=== PATIENT | female | born 1930 | race Asian ===

== ENCOUNTER 2019-01-29 10:50 | Inpatient (IN) | payer MEDICARE, BC ==
[~2019-01-29] VITALS: Ht 165.1 cm; Wt 72.7 kg
[~2019-01-29 10:50] MED LIST: CHOLESTEROL PO; HIGH BP PO; THYROID PO
[2019-01-29] MEDS ORDERED: morphine 4 MG/ML VIAL IV ONE (11:00)
[2019-01-29] MEDS ORDERED: SOD CHLORIDE 0.9% 1,000 ML IV STA (11:00)
[2019-01-29] MEDS ORDERED: ONDANSETRON 4 MG INJ IV ONE (11:00)
[2019-01-29] MEDS ORDERED: MECL-77 PO (11:51)
[2019-01-29] MEDS ORDERED: PANT40TA3 PO (11:52)
[2019-01-29] MEDS ORDERED: AMLO5TAB4 PO (11:52)
[2019-01-29] MEDS ORDERED: LEVO25TA50 PO (11:52)
[2019-01-29] MEDS ORDERED: ATOR10TA65 PO (11:53)
[2019-01-29] MEDS ORDERED: CELE200C PO (11:55)
[2019-01-29] MEDS ORDERED: FENO134C PO (11:57)
[2019-01-29] MEDS ORDERED: LIPA1CAP6 PO (11:57)
[2019-01-29] MEDS ORDERED: DULO30CA47 PO (11:57)
[2019-01-29] MEDS ORDERED: PREG50CA PO (11:58)
[2019-01-29] MEDS ORDERED: METO-448 PO (12:00)
[2019-01-29] MEDS ORDERED: ALEN70TA5 PO (12:00)
[2019-01-29] MEDS ORDERED: LEVO5TAB PO (12:01)
--- NOTE | 2019-01-29 13:56 | ERD ---
ER Documentation Chief Complaint Chief Complaint pt fell out of bed-back pain HPI This is an 88-year-old female who comes from a longterm facility. The patient fell out of bed just prior to arrival. She is describing lumbar back pain. Moderate, throbbing. No reported head trauma or loss of consciousness, no anticoagulants ported. Remainder of HPI is limited. The patient denies any chest pain or shortness of breath. 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 Medications Home Meds Reported Medications Levocetirizine Dihydrochloride (LEVOCETIRIZINE DIHYDROCHLORIDE) 5 Mg Tablet, 5 MG PO DAILY, #30 TAB 01/29/19 Alendronate Sodium* (Fosamax*) 70 Mg Tablet, 70 MG PO Q7D, #4 TAB 01/29/19 Metoprolol Tartrate* (Lopressor*) 25 Mg Tab, 25 MG PO DAILY, #60 TAB 01/29/19 Pregabalin* (Lyrica*) 50 Mg Capsule, 50 MG PO DAILY, CAP 01/29/19 Duloxetine Hcl* (Duloxetine Hcl*) 30 Mg Capsule.dr, 30 MG PO DAILY, #30 CAP 01/29/19 Yqcuge-Rholcqio-Ymgnbyl* (Rosita DR* 24,000) 24,000 L-76,000-120,000 Unit Capsule.dr, 1 CAP PO WITH MEALS, CAP 01/29/19 Fenofibrate, Micronized (Fenofibrate) 134 Mg Capsule, 134 MG PO DAILY, CAP 01/29/19 Celecoxib* (Celebrex*) 200 Mg Capsule, 200 MG PO DAILY, CAP 01/29/19 Atorvastatin Calcium (Atorvastatin Calcium) 10 Mg Tablet, 10 MG PO QHS, #30 TAB 01/29/19 Pantoprazole* (Protonix*) 40 Mg Tablet.dr, 40 MG PO DAILY, TAB 01/29/19 Amlodipine Besylate* (Norvasc*) 5 Mg Tablet, 5 MG PO DAILY, TAB 01/29/19 Levothyroxine Sodium* (Levoxyl*) 25 Mcg Tablet, 25 MCG PO BEFORE BREAKFAST, #30 TAB 01/29/19 Meclizine Hcl* (Meclizine Hcl*) 25 Mg Tablet, 25 MG PO BID PRN for DIZZINESS, TAB 01/29/19 Discontinued Reported Medications [Thyroid] No Conflict Check, PO DAILY 04/05/11 [High Bp] No Conflict Check, PO DAILY 04/05/11 [Cholesterol ] No Conflict Check, PO DAILY 04/05/11 Allergies Allergies: Coded Allergies: No Known Drug Allergies (Verified Allergy, Unknown, 01/29/19) PMhx/Soc History of Surgery: Yes (L ANKLE SX 2001) Anesthesia Reaction: No Hx Neurological Disorder: No Hx Respiratory Disorders: No Hx Cardiac Disorders: Yes (HTN, cholesterol) Hx Psychiatric Problems: No Hx Miscellaneous Medical Probl: No Hx Alcohol Use: No Hx Substance Use: No Hx Tobacco Use: No Smoking Status: Never smoker FmHx Family History: No diabetes Physical Exam Vitals Vital Signs Date Temp Pulse Resp B/P (MAP) Pulse Ox O2 O2 Flow FiO2 Time Delivery Rate 01/29/19 97.8 76 18 170/90 98 11:09 (116) Physical Exam Airway is intact Bilateral breath sounds Strong distal pulses No obvious deficits General: Well developed, well nourished, no acute distress Head: Normocephalic, atraumatic Eyes: Pupils equally reactive, EOM intact ENT: Moist mucous membranes Neck: Supple, no lymphadenopathy, No midline tenderness, deformities, step-offs to the cervical spine, full active and passive range of motion without midline pain. Respiratory: Lungs clear bilaterally, no distress, no chest wall tenderness, no crepitus Cardiovascular: RRR, no murmurs, rubs, or gallops Abdominal: Soft, non-tender, non-distended, no peritoneal signs, pelvis is stable : Deferred MSK: No edema, no unilateral swelling, 5/5 strength, no midline tenderness deformities or step-offs to the thoracolumbar spine Neurologic: Alert and oriented, moving all extremities, normal speech, no focal weakness, no cerebellar signs Skin: No ecchymoses or bruising to the chest or abdomen Psych: Normal mood Result Diagram: 01/29/19 1131 01/29/19 1131 Results 24 hrs Laboratory Tests Test 01/29/19 11:31 White Blood Count 8.1 10^3/ul Red Blood Count 4.48 10^6/ul Hemoglobin 13.8 g/dl Hematocrit 42.4 % Mean Corpuscular Volume 94.6 fl Mean Corpuscular Hemoglobin 30.8 pg Mean Corpuscular Hemoglobin Concent 32.5 g/dl Red Cell Distribution Width 12.9 % Platelet Count 292 10^3/UL Mean Platelet Volume 9.3 fl Immature Granulocytes % 0.200 % Neutrophils % 67.5 % Lymphocytes % 24.9 % Monocytes % 6.9 % Eosinophils % 0.4 % Basophils % 0.1 % Nucleated Red Blood Cells % 0.0 /100WBC Immature Granulocytes # 0.020 10^3/ul Neutrophils # 5.5 10^3/ul Lymphocytes # 2.0 10^3/ul Monocytes # 0.6 10^3/ul Eosinophils # 0.0 10^3/ul Basophils # 0.0 10^3/ul Nucleated Red Blood Cells # 0.0 10^3/ul Prothrombin Time 11.8 Sec Prothrombin Time Ratio 0.9 INR International Normalized Ratio 0.86 Activated Partial Thromboplast Time 27.7 Sec Sodium Level 141 mmol/L Potassium Level 4.0 mmol/L Chloride Level 104 mmol/L Carbon Dioxide Level 26 mmol/L Anion Gap 11 Blood Urea Nitrogen 15 mg/dl Creatinine 0.64 mg/dl Est Glomerular Filtrat Rate mL/min mL/min Glucose Level 163 mg/dl Calcium Level 9.7 mg/dl Creatine Kinase 40 IU/L Current Medications Medications Dose Sig/Piedad Start Time Status Last (Trade) Ordered Route PRN Stop Time Admin Dose Reason Admin Sodium 1,000 ml @ Q1H STAT 01/29/19 DC 01/29/19 Chloride 1,000 mls/hr IV 11:00 11:38 01/29/19 11:59 Morphine 4 mg ONCE ONCE 01/29/19 DC 01/29/19 Sulfate IV 11:00 11:37 (morphine) 01/29/19 11:02 Ondansetron 4 mg ONCE ONCE 01/29/19 DC 01/29/19 HCl (Zofran IV 11:00 11:37 Inj) 01/29/19 11:02 Ondansetron 4 mg BRIDGE ORDER 01/29/19 HCl (Zofran PRN IV 14:00 Inj) NAUSEA/VOMITI 01/30/19 13:59 NG 650 mg ER BRIDGE 01/29/19 Acetaminophen PRN PO 14:00 (Tylenol .MILD PAIN 01/30/19 13:59 Tab) 1-3 OR TEMP Procedures/MDM EKG, MONITORS, & DIAGNOSTIC IMAGING: ct brain IMPRESSION: 1. No acute intracranial hemorrhage, transcortical infarction or mass effect. 2. Moderate intracranial atherosclerosis and chronic small vessel ischemic changes. 3. Small lacunar infarcts in the left frontal periventricular white matter as well as left thalamus. 4. Moderate generalized cerebral and mild cerebellar volume loss. RPTAT: CT L spine IMPRESSION: 1. Indeterminate age L3 vertebral body fracture with 70% vertebral body height loss. Recommend MR to further evaluate for acuity and potential vertebral augmentation candidacy. 2. Multilevel broad-based disc osteophyte complexes at the T11-12 through L5-S1 levels with severe central canal stenosis at L3-4 and L4-5, moderate to severe at L2-3, moderate at L5-S1 and mild at L1-2. 3. Multilevel neural foraminal stenosis at the L1-2 through L5-S1 levels and correlate with respective radiculopathy. 4. Multilevel facet ligamentum flavum osteoarthropathy 5. Severe generalized osteopenia 6. Atherosclerotic vascular disease CT T SPINE IMPRESSION: 1. No acute fractures or traumatic subluxations. 2. Diffuse generalized osteopenia and diffuse thoracic enthesopathy. 3. Intradiskal calcifications at the T8-9 through T10-11 levels with vacuum phenomenon present at T6-7 T10-11 and T11-12. 4. Mild atherosclerotic vascular disease RPTAT: [facility] INTERPRETATION: I reviewed the laboratory testing and it shows [no evidence of acute process] MEDICAL DECISION MAKING: Patient has mechanical fall. No evidence of syncope. The patient's age warrant CT imaging of the head, lumbar and thoracic spine. ER COURSE: * CT showing evidence of a 70% compression fracture of L3. This is likely a acute fracture no subacute process cannot be ruled out. Given 70% reduction, persistent pain inpatient hospital station appropriate. * Orthopedic surgeon surface to air weapons officer Dr. Zaragoza states that he can consult on this case * pain is well controlled with pain medication in the emergency room setting CONSULTATION: Orthopedic surgeon, Dr. Zaragoza DISPOSITION PLAN: Accepting care team and consultations: I discussed the current laboratory data, diagnostic imaging and emergency care provided. Admitting team: Dr. Gusman Admitting team indication: Insurance directed Departure Diagnosis: Primary Impression: Compression fracture of L3 vertebra Encounter type: initial encounter Qualified Codes: S32.030A - Wedge compression fracture of third lumbar vertebra, initial encounter for closed fracture Condition: Stable BAUTISTA BUCHANAN MD Jan 29, 2019 13:56
[2019-01-29] MEDS ORDERED: ONDANSETRON 4 MG INJ IV PRN ×2 (14:00)
[2019-01-29] MEDS ORDERED: MECLIZINE 25 MG TAB PO PRN (14:00)
[2019-01-29] MEDS ORDERED: NACL 0.9% 3 ML SYG IV SCH (14:00)
[2019-01-29] MEDS ORDERED: ACETAMINOPHEN 325 MG TAB PO PRN ×2 (14:00)
[2019-01-29] MEDS ORDERED: morphine 2 MG INJ IV PRN (14:00)
--- NOTE | 2019-01-29 14:38 | HP ---
Date/Time of Note Date/Time of Note DATE: 01/29/19 TIME: 14:38 Assessment/Plan VTE Prophylaxis Pharmacological prophylaxis: other Lines/Catheters IV Catheter Type (from Nrsg): Saline Lock Assessment/Plan Hospital Course Patient is a [place] female with a past medical history significant for compression fracture approximately 1 year ago, hypertension, dyslipidemia, mood disorder, neuropathy, digestive issues, GERD, hypothyroidism who presents to [facility] after mechanical fall. According to family and patient, patient had to urinate early in the morning around 5 AM, as she was getting out of bed as she normally does she felt a pinch of pain in her lower back while she was in the process of getting out of bed which caused her to collapse and fall. Patient states that the pinch of pain in her back is the exact same area that she has been dealing with for over 1 year. One year ago patient had a fall in the bathtub which caused her to have a compression fracture. Currently patient who is with no significant signs of dementia states that the pain is localized to the exact same area that she chronically deals with but it is augmented. Patient denies any hip or leg pain that is new at this time. Patient denies chest pain, shortness of breath, headache, nausea, vomiting, abdominal pain, leg pain, bowel or bladder dysfunction. Objective Physical exam General: Patient is laying in bed and answers questions appropriately Mentation: Patient is alert and oriented 4, Head: Normocephalic atraumatic Eyes: EOMI, pupils reactive to light Neck: Supple, nontender, midline Respiratory: Clear to auscultation bilaterally Cardiovascular: regular rate, no obvious murmurs Gastrointestinal: non-tender to palpation, bowel sounds heard. Neurological: Moves all extremities spontaneously Musculoskeletal: Mild to moderately tender in the lower back region Assessment and plan Acute on chronic lumbar back pain secondary to mechanical fall -Patient does have a history of compression fracture, current CT shows age indeterminant compression fracture -Dr. Zaragoza, orthopedic surgeon has been consulted -Patient's and patient's family decided 1 year ago not to proceed with compression fracture surgery however things may be different at this time, will defer to Dr. Zaragoza and family's decision -Hold off on physical therapy occupational therapy until orthopedic surgery has seen patient -Hold off on imaging as will defer to orthopedic surgeon for optimal correct imaging for further imaging studies if needed. Hypertension -Continue home meds Dyslipidemia -Continue home meds Foot pain issues -Continue Lyrica Chronic compression fracture -Hold Celebrex for now, other pain meds available -Monitor GERD -Continue PPI Hypothyroidism -Continue home medications Disposition -Awaiting orthopedic surgery evaluation, Result Diagram: 01/29/19 1131 01/29/19 1131 Results 24hrs Laboratory Tests Test 01/29/19 11:31 White Blood Count 8.1 Red Blood Count 4.48 Hemoglobin 13.8 Hematocrit 42.4 Mean Corpuscular Volume 94.6 Mean Corpuscular Hemoglobin 30.8 Mean Corpuscular Hemoglobin Concent 32.5 Red Cell Distribution Width 12.9 Platelet Count 292 Mean Platelet Volume 9.3 Immature Granulocytes % 0.200 Neutrophils % 67.5 Lymphocytes % 24.9 Monocytes % 6.9 Eosinophils % 0.4 Basophils % 0.1 Nucleated Red Blood Cells % 0.0 Immature Granulocytes # 0.020 Neutrophils # 5.5 Lymphocytes # 2.0 Monocytes # 0.6 Eosinophils # 0.0 Basophils # 0.0 Nucleated Red Blood Cells # 0.0 Prothrombin Time 11.8 L Prothrombin Time Ratio 0.9 INR International Normalized Ratio 0.86 Activated Partial Thromboplast Time 27.7 Sodium Level 141 Potassium Level 4.0 Chloride Level 104 Carbon Dioxide Level 26 Anion Gap 11 Blood Urea Nitrogen 15 Creatinine 0.64 Est Glomerular Filtrat Rate mL/min Glucose Level 163 Calcium Level 9.7 Creatine Kinase 40 HPI/ROS Admit Date/Time Admit Date/Time PMH/Family/Social Past Medical History Medications Current Medications Ondansetron HCl (Zofran Inj) 4 mg BRIDGE ORDER PRN IV NAUSEA/VOMITING; Start 01/29/19 at 14:00; Stop 01/30/19 at 13:59 Acetaminophen (Tylenol Tab) 650 mg ER BRIDGE PRN PO .MILD PAIN 1-3 OR TEMP; Start 01/29/19 at 14:00; Stop 01/30/19 at 13:59 IV Flush (NS 3 ml) 3 ml PER PROTOCOL IV ; Start 01/29/19 at 14:00; Status UNV Ondansetron HCl (Zofran Inj) 4 mg Q6H PRN IV NAUSEA/VOMITING; Start 01/29/19 at 14:00; Status UNV Acetaminophen (Tylenol Tab) 650 mg Q6H PRN PO .PAIN 1-3 OR TEMP; Start 01/29/19 at 14:00; Status UNV Acetaminophen/ Hydrocodone Bitart ([place] (5/325)) 1 tab Q6H PRN PO .PAIN 4-6; Start 01/29/19 at 14:00; Status UNV Morphine Sulfate (morphine) 2 mg Q4H PRN IV .PAIN 7-10; Start 01/29/19 at 14:00; Status UNV Amlodipine Besylate (Norvasc) 5 mg DAILY PO ; Start 01/30/19 at 09:00; Status UNV Atorvastatin Calcium (Lipitor) 10 mg QHS PO ; Start 01/29/19 at 21:00; Status UNV Duloxetine HCl (Cymbalta) 30 mg DAILY PO ; Start 01/30/19 at 09:00; Status UNV Levothyroxine Sodium (Synthroid) 25 mcg BEFORE BREAKFAST PO ; Start 01/30/19 at 07:00; Status UNV Amylase/Lipase/ Protease (Creon ([id number])) 1 cap WITH MEALS PO ; Start 01/29/19 at 18:00; Status UNV Meclizine HCl (Antivert) 25 mg BID PRN PO DIZZINESS; Start 01/29/19 at 14:00; Status UNV Pantoprazole (Protonix Tab) 40 mg DAILY PO ; Start 01/30/19 at 09:00; Status UNV Pregabalin (Lyrica) 50 mg DAILY PO ; Start 01/30/19 at 09:00; Status UNV Miscellaneous Information 134 mg DAILY PO ; Start 01/30/19 at 09:00; Status UNV Miscellaneous Information 5 mg DAILY PO ; Start 01/30/19 at 09:00; Status UNV Metoprolol Tartrate (Lopressor) 12.5 mg BID PO ; Start 01/29/19 at 21:00; Statu s UNV Coded Allergies: No Known Drug Allergies (Verified Allergy, Unknown, 01/29/19) Social History Smoking Status: Never smoker Exam/Review of Systems Vital Signs Vitals Vital Signs Date Temp Pulse Resp B/P (MAP) Pulse Ox O2 O2 Flow FiO2 Time Delivery Rate 01/29/19 97.8 76 18 170/90 98 11:09 (116) SUKHI PARRISH Jan 29, 2019 14:38
[2019-01-29] MEDS: CREON (24K-76K-120K) 1 CAP PO SCH ×2 (18:00→20:49)
[2019-01-29] MEDS: ATORVASTATIN 10 MG TAB PO SCH (20:49)
[2019-01-29] MEDS: METOPROLOL 25 MG TAB PO SCH (20:50)
[2019-01-29] MEDS ORDERED: MELATONIN 5 MG TABLET PO ONE (22:00)
[2019-01-30] MEDS: HYDROCODONE/APAP (5/325) TAB PO PRN ×2 (00:17→10:21)
[2019-01-30 00:39] VITALS: Ht 165.1 cm; Wt 72.7 kg
[2019-01-30 02:30] VITALS: BP 126/69; PULSE 75; RESP 19
[2019-01-30] MEDS: LEVOTHYROXINE 25 MCG TAB PO SCH (06:02)
[2019-01-30] MEDS: PANTOPRAZOLE (EC) 40 MG TAB PO SCH (06:02)
[2019-01-30 07:34] VITALS: BP 143/74; PULSE 80; RESP 17
[2019-01-30] MEDS: FENOFIBRATE 145 MG TAB PO SCH (08:37)
[2019-01-30] MEDS: LORATADINE 10 MG TAB PO SCH (08:37)
[2019-01-30] MEDS: CREON (24K-76K-120K) 1 CAP PO SCH ×3 (08:37→18:27)
[2019-01-30] MEDS: DULOXETINE 30 MG CAP DR PO SCH (08:37)
[2019-01-30] MEDS: PREGABALIN 50 MG CAP PO SCH (08:38)
[2019-01-30] MEDS: AMLODIPINE 5 MG TAB PO SCH (08:38)
[2019-01-30] MEDS: METOPROLOL 25 MG TAB PO SCH ×2 (08:38→20:31)
[2019-01-30] MEDS ORDERED: METOPROLOL 25 MG TAB PO SCH ×2 (09:00→21:00)
[2019-01-30] MEDS ORDERED: hydrALAzine 20 MG INJ IV PRN (09:00)
--- NOTE | 2019-01-30 14:12 | PN ---
Date/Time of Note Date/Time of Note DATE: 01/30/19 TIME: 14:07 Objective Vitals Vital Signs Date Temp Pulse Resp B/P (MAP) Pulse Ox O2 O2 Flow FiO2 Time Delivery Rate 01/30/19 98.3 80 17 143/74 93 Room Air 07:34 (97) Results Result Diagram: 01/30/19 0424 01/30/19 0424 Medications Medications Current Medications IV Flush (NS 3 ml) 3 ml PER PROTOCOL IV ; Start 01/29/19 at 14:00 Ondansetron HCl (Zofran Inj) 4 mg Q6H PRN IV NAUSEA/VOMITING; Start 01/29/19 at 14:00 Acetaminophen (Tylenol Tab) 650 mg Q6H PRN PO .PAIN 1-3 OR TEMP; Start 01/29/19 at 14:00 Acetaminophen/ Hydrocodone Bitart ([place] (5/325)) 1 tab Q6H PRN PO .PAIN 4-6 Last administered on 01/30/19at 10:21; Admin Dose 1 TAB; Start 01/29/19 at 14:00 Morphine Sulfate (morphine) 2 mg Q4H PRN IV .PAIN 7-10 Last administered on 01/29/19at 20:44; Admin Dose 2 MG; Start 01/29/19 at 14:00 Amlodipine Besylate (Norvasc) 5 mg DAILY PO Last administered on 01/30/19at 08:38; Admin Dose 5 MG; Start 01/30/19 at 09:00 Atorvastatin Calcium (Lipitor) 10 mg QHS PO Last administered on 01/29/19at 20:49; Admin Dose 10 MG; Start 01/29/19 at 21:00 Duloxetine HCl (Cymbalta) 30 mg DAILY PO Last administered on 01/30/19 08:37; Admin Dose 30 MG; Start 01/30/19 at 09:00 Levothyroxine Sodium (Synthroid) 25 mcg BEFORE BREAKFAST PO Last administered on 01/30/19at 06:02; Admin Dose 25 MCG; Start 01/30/19 at 07:00 Amylase/Lipase/ Protease (Creon ([id number])) 1 cap WITH MEALS PO Last administered on 01/30/19at 13:14; Admin Dose 1 CAP; Start 01/29/19 at 18:00 Meclizine HCl (Antivert) 25 mg BID PRN PO DIZZINESS; Start 01/29/19 at 14:00 Pantoprazole (Protonix Tab) 40 mg DAILY@0600 PO Last administered on 01/30/19at 06:02; Admin Dose 40 MG; Start 01/30/19 at 06:00 Pregabalin (Lyrica) 50 mg DAILY PO Last administered on 01/30/19at 08:38; Admin Dose 50 MG; Start 01/30/19 at 09:00 Fenofibrate (Tricor) 145 mg DAILY PO Last administered on 01/30/19at 08:37; Admin Dose 145 MG; Start 01/30/19 at 09:00 Loratadine (Claritin) 10 mg DAILY PO Last administered on 01/30/19at 08:37; A dmin Dose 10 MG; Start 01/30/19 at 09:00 Hydralazine HCl (Apresoline) 10 mg Q4H PRN IV SBP >160; Start 01/30/19 at 09:00 Metoprolol Tartrate (Lopressor) 25 mg BID PO ; Start 01/30/19 at 21:00 VTE Prophylaxis Risk score (from Ns)>0 risk: 6 SCD applied (from [facility] [place]): Yes Lines/Catheters IV Catheter Type: Michaud in Place: No Assessment/Plan Hospital Course Subjective No acute complaints, patient states that she actually feels a little bit better than yesterday Objective Physical exam General: Patient is laying in bed and answers questions appropriately Mentation: Patient is alert and oriented 4, Head: Normocephalic atraumatic Eyes: EOMI, pupils reactive to light Neck: Supple, nontender, midline Respiratory: Clear to auscultation bilaterally Cardiovascular: regular rate, no obvious murmurs Gastrointestinal: non-tender to palpation, bowel sounds heard. Neurological: Moves all extremities spontaneously Musculoskeletal: Mild tender in the lower back region Assessment and plan Acute on chronic lumbar back pain secondary to mechanical fall -Patient does have a history of compression fracture, current CT shows age indeterminant compression fracture -Dr. Zaragoza, orthopedic surgeon has been consulted -Patient's decided 1 year ago not to proceed with compression fracture surgery however things may be different at this time, will defer to Dr. Zaragoza and family's decision -Hold off on physical therapy occupational therapy until orthopedic surgery has seen patient -Hold off on imaging as will defer to orthopedic surgeon for optimal correct imaging for further imaging studies if needed. Hypertension -Continue home meds Dyslipidemia -Continue home meds Foot pain issues -Continue Lyrica Chronic compression fracture -Hold Celebrex for now, other pain meds available -Monitor GERD -Continue PPI Hypothyroidism -Continue home medications Disposition -Awaiting orthopedic surgery evaluation, SUKIH PARRISH Jan 30, 2019 14:12
[2019-01-30 14:35] VITALS: BP 119/86; PULSE 81; RESP 19
--- NOTE | 2019-01-30 19:02 | CONS ---
DATE OF ADMISSION: 01/30/2019 DATE OF CONSULTATION: 01/30/2019 TYPE OF CONSULTATION: Orthopedic surgical. HISTORY OF PRESENT ILLNESS: The patient is an 88-year-old female who was admitted on 01/29/2019 when she was brought into the emergency room following a ground-level fall. She obviously had a ground-l evel fall about 1-1/2 years ago sustaining fracture involving her lumbar spine. Exact level of the f racture is not known to the patient. However, the patient claims that she has an x-ray of her low ba ck from that injury and she could bring it in for our review. Since her fracture 1-1/2 years ago, laura donovan has been having chronic pain on and off which is usually worse with prolonged standing or walking. About this time, she felt some pain while she was getting out of bed in order to go to the bathroom for urination and she fell in the bathtub somewhat slowly. Following the incident, she was having in creased pain and she was brought into the emergency room. She claims that her pain is worse followin g the recent fall. There was some radiation of the pain along the left buttock and left lower extrem ity. There was some tenderness around the low back. Range of motion was mildly limited. There were no ob vious motor weakness or sensory changes. The test of the deep tendon reflex was limited but it seems to have detectable knee jerk and ankle jerk. Straight leg raising was negative. CT scan of the lumbosacral spine revealed compression fracture of the L3 of indeterminate age with ab out 70% height loss. There were multilevel broad-based disk osteophyte complexes from T11 to S1 caus ing central canal stenosis of varying degree at different levels along with the foraminal stenosis. DIAGNOSTIC IMPRESSION: 1. Compression fracture of the vertebral body of L3 of undetermined age. 2. Spinal stenosis and foraminal stenosis at of various degrees at multiple levels of the lumbosacra l spine. TREATMENT PLAN: 1. MRI scan of the lumbosacral spine to see the age of the fracture and degree of spinal stenosis an d foraminal stenosis better. 2. If the fracture is old and after evaluating the degree of spinal stenosis and foraminal stenosis, she may benefit with the short course of the steroids with Medrol Dosepak along with Neurontin. Epi dural injection could also be considered as an outpatient. 3. Consider utilization of the brace if the fracture is acute. 4. Mobilization with the course of medication and brace on board. Dictated By: CLAIRE HERNADEZ/ANNE Conf#: [id number] DID#: [id number] CC: SUKHI PARRISH MD;*EndCC*
[2019-01-30 20:20] VITALS: BP 138/70; PULSE 88; RESP 19
[2019-01-30] MEDS: ATORVASTATIN 10 MG TAB PO SCH (20:30)
[2019-01-31 02:37] VITALS: BP 132/79; PULSE 78; RESP 18
[2019-01-31] MEDS: PANTOPRAZOLE (EC) 40 MG TAB PO SCH (06:29)
[2019-01-31] MEDS: LEVOTHYROXINE 25 MCG TAB PO SCH (06:29)
[2019-01-31] MEDS: HYDROCODONE/APAP (5/325) TAB PO PRN (06:31)
[2019-01-31 07:15] VITALS: BP 131/68; PULSE 82; RESP 19
[2019-01-31] MEDS: PREGABALIN 50 MG CAP PO SCH (08:46)
[2019-01-31] MEDS: CREON (24K-76K-120K) 1 CAP PO SCH ×3 (08:46→17:09)
[2019-01-31] MEDS: AMLODIPINE 5 MG TAB PO SCH (08:46)
[2019-01-31] MEDS: FENOFIBRATE 145 MG TAB PO SCH (08:46)
[2019-01-31] MEDS: DULOXETINE 30 MG CAP DR PO SCH (08:47)
[2019-01-31] MEDS: METOPROLOL 25 MG TAB PO SCH ×2 (08:47→20:06)
[2019-01-31] MEDS: LORATADINE 10 MG TAB PO SCH (08:47)
[2019-01-31 14:21] VITALS: BP 128/62; PULSE 72; RESP 19
--- NOTE | 2019-01-31 15:36 | PN ---
Date/Time of Note Date/Time of Note DATE: 01/31/19 TIME: 15:35 Objective Vitals Vital Signs Date Temp Pulse Resp B/P (MAP) Pulse Ox O2 O2 Flow FiO2 Time Delivery Rate 01/31/19 98.2 72 19 128/62 98 14:21 (84) 01/30/19 Room Air 14:35 Intake and Output 01/30/19 01/30/19 01/31/19 1515:00 23:00 07:00 IntakeIntake Total 440 ml 120 ml 120 ml OutputOutput Total 1 ml 1 ml BalanceBalance 440 ml 119 ml 119 ml Results Result Diagram: 01/31/19 0429 01/31/19 0429 Medications Medications Current Medications IV Flush (NS 3 ml) 3 ml PER PROTOCOL IV ; Start 01/29/19 at 14:00 Ondansetron HCl (Zofran Inj) 4 mg Q6H PRN IV NAUSEA/VOMITING; Start 01/29/19 at 14:00 Acetaminophen (Tylenol Tab) 650 mg Q6H PRN PO .PAIN 1-3 OR TEMP; Start 01/29/19 at 14:00 Acetaminophen/ Hydrocodone Bitart ([place] (5/325)) 1 tab Q6H PRN PO .PAIN 4-6 Last administered on 01/31/19at 06:31; Admin Dose 1 TAB; Start 01/29/19 at 14:00 Morphine Sulfate (morphine) 2 mg Q4H PRN IV .PAIN 7-10 Last administered on 01/29/19at 20:44; Admin Dose 2 MG; Start 01/29/19 at 14:00 Amlodipine Besylate (Norvasc) 5 mg DAILY PO Last administered on 01/31/19 08:46; Admin Dose 5 MG; Start 01/30/19 at 09:00 Atorvastatin Calcium (Lipitor) 10 mg QHS PO Last administered on 01/30/19 20:30; Admin Dose 10 MG; Start 01/29/19 at 21:00 Duloxetine HCl (Cymbalta) 30 mg DAILY PO Last administered on 01/31/19 08:47; Admin Dose 30 MG; Start 01/30/19 at 09:00 Levothyroxine Sodium (Synthroid) 25 mcg BEFORE BREAKFAST PO Last administered on 01/31/19at 06:29; Admin Dose 25 MCG; Start 01/30/19 at 07:00 Amylase/Lipase/ Protease (Creon ([id number])) 1 cap WITH MEALS PO Last administered on 01/31/19at 13:38; Admin Dose 1 CAP; Start 01/29/19 at 18:00 Meclizine HCl (Antivert) 25 mg BID PRN PO DIZZINESS; Start 01/29/19 at 14:00 Pantoprazole (Protonix Tab) 40 mg DAILY@0600 PO Last administered on 01/31/19at 06:29; Admin Dose 40 MG; Start 01/30/19 at 06:00 Pregabalin (Lyrica) 50 mg DAILY PO Last administered on 01/31/19 08:46; Admin Dose 50 MG; Start 01/30/19 at 09:00 Fenofibrate (Tricor) 145 mg DAILY PO Last administered on 01/31/19 08:46; Ad min Dose 145 MG; Start 01/30/19 at 09:00 Loratadine (Claritin) 10 mg DAILY PO Last administered on 01/31/19 08:47; Admin Dose 10 MG; Start 01/30/19 at 09:00 Hydralazine HCl (Apresoline) 10 mg Q4H PRN IV SBP >160; Start 01/30/19 at 09:00 Metoprolol Tartrate (Lopressor) 12.5 mg BID PO Last administered on 01/31/19 08:47; Admin Dose 12.5 MG; Start 01/30/19 at 21:00 VTE Prophylaxis Risk score (from Ns)>0 risk: 5 SCD applied (from Ns): Yes Lines/Catheters IV Catheter Type: Michaud in Place: No Assessment/Plan Hospital Course Subjective No acute complaints, patient states that she actually feels a little bit better than yesterday Objective Physical exam General: Patient is laying in bed and answers questions appropriately Mentation: Patient is alert and oriented 4, Head: Normocephalic atraumatic Eyes: EOMI, pupils reactive to light Neck: Supple, nontender, midline Respiratory: Clear to auscultation bilaterally Cardiovascular: regular rate, no obvious murmurs Gastrointestinal: non-tender to palpation, bowel sounds heard. Neurological: Moves all extremities spontaneously Musculoskeletal: Mild tender in the lower back region Assessment and plan Acute on chronic lumbar back pain secondary to mechanical fall -Patient does have a history of compression fracture, current CT shows age indeterminant compression fracture -Dr. Zaragoza, orthopedic surgeon has been consulted -MRI reviewed by Dr. Zaragoza, patient will need to do physical therapy with brace, will await Dr. Zaragoza's orders for proper brace Hypertension -Continue home meds Dyslipidemia -Continue home meds Foot pain issues -Continue Lyrica Chronic compression fracture -Hold Celebrex for now, other pain meds available -Monitor GERD -Continue PPI Hypothyroidism -Continue home medications Disposition -Awaiting brace order and subsequent PT evaluation to see if patient can go home versus fdc. SUKHI PARRISH Jan 31, 2019 15:36
[2019-01-31] MEDS ORDERED: METHYLPREDNISOLONE 4 MG TAB PO SCH (19:00)
[2019-01-31 19:10] VITALS: BP 161/76; PULSE 81; RESP 18
[2019-01-31] MEDS: GABAPENTIN 300 MG CAP PO SCH (20:07)
[2019-01-31] MEDS: ATORVASTATIN 10 MG TAB PO SCH (20:07)
[2019-02-01 01:59] VITALS: BP 130/68; PULSE 76; RESP 18
[2019-02-01] MEDS: PANTOPRAZOLE (EC) 40 MG TAB PO SCH (06:44)
[2019-02-01] MEDS: LEVOTHYROXINE 25 MCG TAB PO SCH (06:44)
[2019-02-01] MEDS ORDERED: METHYLPREDNISOLONE 4 MG TAB PO SCH ×5 (07:00→21:00)
[2019-02-01 07:24] VITALS: BP 142/77; PULSE 68; RESP 19
[2019-02-01] MEDS ORDERED: METHYLPREDNISOLONE (MEDROL) DOSE PACK PO SCH (09:00)
[2019-02-01] MEDS: CREON (24K-76K-120K) 1 CAP PO SCH ×3 (09:08→18:01)
[2019-02-01] MEDS: FENOFIBRATE 145 MG TAB PO SCH (09:08)
[2019-02-01] MEDS: LORATADINE 10 MG TAB PO SCH (09:08)
[2019-02-01] MEDS: PREGABALIN 50 MG CAP PO SCH (09:08)
[2019-02-01] MEDS: DULOXETINE 30 MG CAP DR PO SCH (09:08)
[2019-02-01] MEDS: GABAPENTIN 300 MG CAP PO SCH ×3 (09:08→23:14)
[2019-02-01] MEDS: METOPROLOL 25 MG TAB PO SCH ×2 (09:09→23:13)
[2019-02-01] MEDS: AMLODIPINE 5 MG TAB PO SCH (09:09)
--- NOTE | 2019-02-01 12:18 | PN ---
Date/Time of Note Date/Time of Note DATE: 02/01/19 TIME: 12:17 Objective Vitals Vital Signs Date Temp Pulse Resp B/P (MAP) Pulse Ox O2 O2 Flow FiO2 Time Delivery Rate 02/01/19 98.4 68 19 142/77 95 Room Air 07:24 (98) Intake and Output 01/31/19 01/31/19 02/01/19 1515:00 23:00 07:00 IntakeIntake Total 180 ml BalanceBalance 180 ml Results Result Diagram: 02/01/195 02/01/19 0435 Medications Medications Current Medications IV Flush (NS 3 ml) 3 ml PER PROTOCOL IV ; Start 01/29/19 at 14:00 Ondansetron HCl (Zofran Inj) 4 mg Q6H PRN IV NAUSEA/VOMITING; Start 01/29/19 at 14:00 Acetaminophen (Tylenol Tab) 650 mg Q6H PRN PO .PAIN 1-3 OR TEMP; Start 01/29/19 at 14:00 Acetaminophen/ Hydrocodone Bitart ([place] (5/325)) 1 tab Q6H PRN PO .PAIN 4-6 Last administered on 01/31/19 06:31; Admin Dose 1 TAB; Start 01/29/19 at 14:00 Morphine Sulfate (morphine) 2 mg Q4H PRN IV .PAIN 7-10 Last administered on 01/29/19 20:44; Admin Dose 2 MG; Start 01/29/19 at 14:00 Amlodipine Besylate (Norvasc) 5 mg DAILY PO Last administered on 02/01/19 09:09; Admin Dose 5 MG; Start 01/30/19 at 09:00 Atorvastatin Calcium (Lipitor) 10 mg QHS PO Last administered on 01/31/19 20:07; Admin Dose 10 MG; Start 01/29/19 at 21:00 Duloxetine HCl (Cymbalta) 30 mg DAILY PO Last administered on 02/01/19 09:08; Admin Dose 30 MG; Start 01/30/19 at 09:00 Levothyroxine Sodium (Synthroid) 25 mcg BEFORE BREAKFAST PO Last administered on 02/01/19 06:44; Admin Dose 25 MCG; Start 01/30/19 at 07:00 Amylase/Lipase/ Protease (Creon ([id number])) 1 cap WITH MEALS PO Last administered on 02/01/19 09:08; Admin Dose 1 CAP; Start 01/29/19 at 18:00 Meclizine HCl (Antivert) 25 mg BID PRN PO DIZZINESS; Start 01/29/19 at 14:00 Pantoprazole (Protonix Tab) 40 mg DAILY@0600 PO Last administered on 02/01/19at 06:44; Admin Dose 40 MG; Start 01/30/19 at 06:00 Pregabalin (Lyrica) 50 mg DAILY PO Last administered on 02/01/19 09:08; Admin Dose 50 MG; Start 01/30/19 at 09:00 Fenofibrate (Tricor) 145 mg DAILY PO Last administered on 02/01/19 09:08; Admin Dose 145 MG; Start 01/30/19 at 09:00 Loratadine (Claritin) 10 mg DAILY PO Last administered on 02/01/19 09:08; Admin Dose 10 MG; Start 01/30/19 at 09:00 Hydralazine HCl (Apresoline) 10 mg Q4H PRN IV SBP >160; Start 01/30/19 at 09:00 Metoprolol Tartrate (Lopressor) 12.5 mg BID PO Last administered on 02/01/19 09:09; Admin Dose 12.5 MG; Start 01/30/19 at 21:00 Gabapentin (Neurontin) 300 mg TID PO Last administered on 02/01/19 09:08; Admin Dose 300 MG; Start 01/31/19 at 21:00 Methylprednisolone (Medrol) 4 mg AC BREAKFAST PO ; Start 02/02/19 at 07:20; Stop 02/06/19 at 07:21 Methylprednisolone (Medrol) 4 mg PC LUNCH PO ; Start 02/02/19 at 12:40; Stop 02/04/19 at 12:41 Methylprednisolone (Medrol) 4 mg PC DINNER PO ; Start 02/02/19 at 18:55; Stop 02/03/19 at 18:56 Methylprednisolone (Medrol) 8 mg HS PO ; Start 02/02/19 at 21:00; Stop 02/02/19 at 21:01 Methylprednisolone (Medrol) 4 mg HS PO ; Start 02/03/19 at 21:00; Stop 02/05/19 at 21:01 VTE Prophylaxis Risk score (from Nsg)>0 risk: 5 SCD applied (from Nsg): Yes Lines/Catheters IV Catheter Type: Michaud in Place: No Assessment/Plan Hospital Course Subjective No acute complaints, patient states that she actually feels a little bit better than yesterday Objective Physical exam General: Patient is laying in bed and answers questions appropriately Mentation: Patient is alert and oriented 4, Head: Normocephalic atraumatic Eyes: EOMI, pupils reactive to light Neck: Supple, nontender, midline Respiratory: Clear to auscultation bilaterally Cardiovascular: regular rate, no obvious murmurs Gastrointestinal: non-tender to palpation, bowel sounds heard. Neurological: Moves all extremities spontaneously Musculoskeletal: Mild tender in the lower back region Assessment and plan Acute on chronic lumbar back pain secondary to mechanical fall -Patient does have a history of compression fracture, current CT shows age indeterminant compression fracture -Dr. Zaragoza, orthopedic surgeon has been consulted -MRI reviewed by Dr. Zaragoza, start patient on Medrol Dosepak and gabapentin -Patient did really well according to physical therapy however will need front wheel walker Hypertension -Continue home meds Dyslipidemia -Continue home meds Foot pain issues -Continue Lyrica Chronic compression fracture -Hold Celebrex for now, other pain meds available -Monitor GERD -Continue PPI Hypothyroidism -Continue home medications Disposition -Patient doing well, however will need front wheel walker, family requesting Nepali speaking fpc, case management notified. SUKHI PARRISH Feb 01, 2019 12:18
[2019-02-01 16:04] VITALS: BP 142/78; PULSE 72; RESP 18
[2019-02-01 19:10] VITALS: BP 172/78; PULSE 99; RESP 18
[2019-02-01] MEDS ORDERED: MAGNESIUM HYDROXIDE 30ML CUP PO ONE (23:05)
[2019-02-01] MEDS: ATORVASTATIN 10 MG TAB PO SCH (23:27)
[2019-02-02 02:00] VITALS: BP 137/81; PULSE 91; RESP 18
[2019-02-02] MEDS: LEVOTHYROXINE 25 MCG TAB PO SCH (06:30)
[2019-02-02] MEDS: PANTOPRAZOLE (EC) 40 MG TAB PO SCH (06:30)
[2019-02-02] MEDS ORDERED: METHYLPREDNISOLONE 4 MG TAB PO SCH ×5 (07:20→21:00)
[2019-02-02 07:50] VITALS: BP 133/64; PULSE 86; RESP 16
[2019-02-02] MEDS ORDERED: MAGNESIUM HYDROXIDE 30ML CUP PO PRN (08:00)
[2019-02-02] MEDS: CREON (24K-76K-120K) 1 CAP PO SCH ×2 (08:38→12:45)
[2019-02-02] MEDS: AMLODIPINE 5 MG TAB PO SCH (08:39)
[2019-02-02] MEDS: FENOFIBRATE 145 MG TAB PO SCH (08:39)
[2019-02-02] MEDS: PREGABALIN 50 MG CAP PO SCH (08:39)
[2019-02-02] MEDS: GABAPENTIN 300 MG CAP PO SCH ×2 (08:39→12:45)
[2019-02-02] MEDS: LORATADINE 10 MG TAB PO SCH (08:39)
[2019-02-02] MEDS: DULOXETINE 30 MG CAP DR PO SCH (08:39)
[2019-02-02] MEDS: METOPROLOL 25 MG TAB PO SCH (08:40)
--- NOTE | 2019-02-02 11:53 | DS ---
Date/Time of Note Date/Time of Note DATE: 02/02/19 TIME: 11:53 Discharge Summary Admission/Discharge Info Admit Date/Time Jan 30, 2019 at 08:46 Discharge Date/Time Hospital Course Patient is a [place] female with a past medical history significant for hypertension, dyslipidemia, chronic foot pain issues, chronic compression fracture, GERD, hypothyroidism who presents to [facility] [place] for acute fall secondary to pain after getting out of bed. Patient had questionable acute on chronic compression fracture and orthopedic surgery was called to manage. Patient underwent MRI. Orthopedic surgeon recommended Medrol Dosepak and gabapentin for her chronic compression fracture, no acute issues that were significant enough to debilitate patient as patient is doing very well with physical therapy with no need of brace at this time. Patient however is not safe to go home alone as she is still using a front wheel walker and will benefit from a short stay at a senior care facility. Of note patient will finish out a Medrol Dosepak that was started yesterday and will continue on gabapentin per orthopedic surgery recommendations to follow-up outpatient with Dr. Fabio Zaragoza, ortho surgeon. Discharge diagnosis Acute on chronic lumbar back pain secondary to mechanical fall Chronic compression fracture Hypertension Dyslipidemia Chronic foot pain issues on Lyrica Chronic GERD Hypothyroidism Home Meds Reported Medications Levocetirizine Dihydrochloride (LEVOCETIRIZINE DIHYDROCHLORIDE) 5 Mg Tablet, 5 MG PO DAILY, #30 TAB 01/29/19 Alendronate Sodium* (Fosamax*) 70 Mg Tablet, 70 MG PO Q7D, #4 TAB 01/29/19 Metoprolol Tartrate* (Lopressor*) 25 Mg Tab, 25 MG PO DAILY, #60 TAB 01/29/19 Pregabalin* (Lyrica*) 50 Mg Capsule, 50 MG PO DAILY, CAP 01/29/19 Duloxetine Hcl* (Duloxetine Hcl*) 30 Mg Capsule.dr, 30 MG PO DAILY, #30 CAP 01/29/19 [id number]* (Rosita MANZANARES* 24,000) 24,000 L-76,000-120,000 Unit Capsule., 1 CAP PO WITH MEALS, CAP 01/29/19 Fenofibrate, Micronized (Fenofibrate) 134 Mg Capsule, 134 MG PO DAILY, CAP 01/29/19 Celecoxib* (Celebrex*) 200 Mg Capsule, 200 MG PO DAILY, CAP 01/29/19 Atorvastatin Calcium (Atorvastatin Calcium) 10 Mg Tablet, 10 MG PO QHS, #30 TAB 01/29/19 Pantoprazole* (Protonix*) 40 Mg Tablet.dr, 40 MG PO DAILY, TAB 01/29/19 Amlodipine Besylate* (Norvasc*) 5 Mg Tablet, 5 MG PO DAILY, TAB 01/29/19 Levothyroxine Sodium* (Levoxyl*) 25 Mcg Tablet, 25 MCG PO BEFORE BREAKFAST, #30 TAB 01/29/19 Meclizine Hcl* (Meclizine Hcl*) 25 Mg Tablet, 25 MG PO BID PRN for DIZZINESS, TAB 01/29/19 Discontinued Reported Medications [Thyroid] No Conflict Check, PO DAILY 04/05/11 [High Bp] No Conflict Check, PO DAILY 04/05/11 [Cholesterol ] No Conflict Check, PO DAILY 04/05/11 Primary Care Provider Not On Staff Doctor Time spent on discharge: > 30 minutes Pending Labs Laboratory Tests Test 02/02/19 04:32 White Blood Count 9.0 10^3/ul (4.8-10.8) Red Blood Count 4.42 10^6/ul (4.20-5.40) Hemoglobin 13.5 g/dl (12.0-16.0) Hematocrit 41.6 % (37.0-47.0) Mean Corpuscular Volume 94.1 fl (82.0-101.0) Mean Corpuscular Hemoglobin 30.5 pg (29.0-33.0) Mean Corpuscular Hemoglobin Concent 32.5 g/dl (32.0-37.0) Red Cell Distribution Width 12.9 % (11.5-14.5) Platelet Count 332 10^3/UL (140-415) Mean Platelet Volume 9.5 fl (7.4-10.4) Immature Granulocytes % 0.400 % (0.001-0.429) Neutrophils % 59.9 % (39.0-77.0) Lymphocytes % 32.1 % (15.0-51.0) Monocytes % 7.2 % (0.0-11.0) Eosinophils % 0.3 % (0.0-7.0) Basophils % 0.1 % (0.0-2.0) Nucleated Red Blood Cells % 0.0 /100WBC (0.0-0.0) Immature Granulocytes # 0.040 10^3/ul (0.0-0.031) Neutrophils # 5.4 10^3/ul (1.6-7.5) Lymphocytes # 2.9 10^3/ul (0.8-2.9) Monocytes # 0.7 10^3/ul (0.3-0.9) Eosinophils # 0.0 10^3/ul (0.0-0.5) Basophils # 0.0 10^3/ul (0.0-0.1) Nucleated Red Blood Cells # 0.0 10^3/ul (0.0-0.0) Sodium Level 143 mmol/L (135-144) Potassium Level 4.4 mmol/L (3.5-5.1) Chloride Level 106 mmol/L (97-110) Carbon Dioxide Level 28 mmol/L (21-31) Anion Gap 9 (5-13) Blood Urea Nitrogen 28 mg/dl (7-20) Creatinine 0.68 mg/dl (0.44-1.00) Est Glomerular Filtrat Rate mL/min mL/min (>60) Glucose Level 118 mg/dl (70-220) Calcium Level 8.9 mg/dl (8.4-10.2) Phosphorus Level 2.9 mg/dl (2.5-4.9) Magnesium Level 2.4 mg/dl (1.7-2.5) SUKHI PARRISH Feb 02, 2019 11:53
[2019-02-02] MEDS: HYDROCODONE/APAP (5/325) TAB PO PRN (12:49)
[2019-02-02 14:00] VITALS: BP 130/86; PULSE 85; RESP 16
[2019-02-03] MEDS ORDERED: METHYLPREDNISOLONE 4 MG TAB PO SCH (21:00)
== END 2019-02-02 15:18 | DRG 552 ==
LOC: E/R 10:50 → MS1 13:50 → INTOOBSV 13:50 → SUATTDRO 13:57 → MS1 19:09 → OBSVTOIN 01-30 08:46
PROVIDERS: ADMIT Internal Medicine; ATTEND Internal Medicine
DX: S32.039A Unspecified fracture of third lumbar vertebra, initial encounter for closed fracture (principal); W06.XXXA Fall from bed, initial encounter; M48.07 Spinal stenosis, lumbosacral region; I10 Essential (primary) hypertension; E78.5 Hyperlipidemia, unspecified; K21.9 Gastro-esophageal reflux disease without esophagitis; E03.9 Hypothyroidism, unspecified
CPT/HCPCS: 36415; 70450; 72128; 72131; 72148; 80048; 80053; 82550; 83036; 83735; 84100; 85025; 85610; 85730; 96374; 96375; 97116; 97161; 97530; 99217; G0378; J2270; J2405; J7030; J7509